=== PATIENT | male | born 1985 | race Caucasian/White ===

== ENCOUNTER 2017-07-28 11:03 | Emergency (ER) | payer SELFPAY ==
[2017-07-28 11:04] VITALS: BMI 35.4
[2017-07-28 11:18] VITALS: RESP 18; O2SAT 100
--- NOTE | 2017-07-28 12:28 | C.PDOC ---
History Of Present Illness 31 yr old male presents to the ER with complaints of persistent left ear hearing loss for the past 1 month. Patient reports of bronchiolitis and sinus congestion symptoms, states he hears crackling sounds in the left ear with change in position. Patient denies fever, ear discharge, FB in ear, neck pain or headache. Time Seen by Provider: 07/28/17 11:42 Chief Complaint (Nursing): ENT Problem History Per: Patient History/Exam Limitations: None Onset/Duration Of Symptoms: Days (1 month) Past Medical History Reviewed: Historical Data, Nursing Documentation, Vital Signs Vital Signs: Last Vital Signs Temp 98 F 07/28/17 11:16 Pulse 71 07/28/17 11:16 Resp 18 07/28/17 11:16 BP 128/81 07/28/17 11:16 Pulse Ox 100 07/28/17 12:27 - Medical History PMH: Back Problems (slip disc (cervical-lumbar)), Bronchitis Family History: States: No Known Family Hx - Social History Hx Tobacco Use: Yes (smoke cessation counseling provided) Hx Alcohol Use: Yes Hx Substance Use: No - Immunization History Hx Tetanus Toxoid Vaccination: No Hx Influenza Vaccination: No Hx Pneumococcal Vaccination: No Review Of Systems Except As Marked, All Systems Reviewed And Found Negative. Constitutional: Negative for: Fever ENT: Positive for: Other ((+) Left ear hearing loss. Crackling sound in left ear. (-) FB in ear). Negative for: Ear Discharge Musculoskeletal: Negative for: Neck Pain Neurological: Negative for: Headache Physical Exam - Physical Exam Appears: Non-toxic, No Acute Distress Skin: Warm, Dry, No Rash Head: Atraumatic, Normacephalic Ear(s): Bilateral: Normal Nose: Normal Oral Mucosa: Moist Respiratory: Normal Breath Sounds, No Rales, No Rhonchi, No Stridor, No Wheezing Extremity: Normal ROM, No Swelling Neurological/Psych: Oriented x3, Normal Speech, Normal Motor ED Course And Treatment O2 Sat by Pulse Oximetry: 100 (RA) Pulse Ox Interpretation: Normal Disposition Counseled Patient/Family Regarding: Diagnosis, Need For Followup, Rx Given - Disposition Referrals: Presley Monreal MD [Staff Provider] - Disposition: HOME/ ROUTINE Disposition Time: 12:26 Condition: GOOD Additional Instructions: USE NASAL SPRAY X 1 MONTH COMPLETE ANTIBIOTICS PRESCRIBED. Prescriptions: Fluticasone Propionate [Flonase] 2 spr FREDY DAILY #1 bottle Pseudoephedrine HCl [Sudafed 24 Hour] 240 mg PO DAILY PRN #1 unit PRN Reason: Sinus Symptoms Sulfamethoxazole/Trimethoprim [Bactrim DS 800 mg-160 mg] 1 tab PO BID #28 tab Instructions: Sinusitis (ED) Forms: [email or web address] ([place]) - Clinical Impression Clinical Impression: Middle ear effusion, Sinusitis, Upper respiratory infection - Scribe Statement The provider has reviewed the documentation as recorded by the Manny Hackett Provider Attestation: All medical record entries made by the Kyawibmee were at my direction and personally dictated by me. I have reviewed the chart and agree that the record accurately reflects my personal performance of the history, physical exam, medical decision making, and the department course for this patient. I have also personally directed, reviewed, and agree with the discharge instructions and disposition.
[2017-07-28 12:41] VITALS: BP 136/68; PULSE 72; TEMP 98
== END 2017-07-28 12:41 | disposition home or self-care (01) ==
LOC: C.ER 11:03
DX: J06.9 Acute upper respiratory infection, unspecified (principal); J32.9 Chronic sinusitis, unspecified; H74.8X2 Other specified disorders of left middle ear and mastoid; Z87.891 Personal history of nicotine dependence

== ENCOUNTER 2018-04-15 09:27 | Emergency (ER) | payer SELFPAY ==
[2018-04-15 09:27] VITALS: BMI 35.4
--- NOTE | 2018-04-15 09:44 | C.PDOC ---
History Of Present Illness Patient reports right sided toothache since yesterday. Has not taken any pain relievers at home. Has not seen a dentist recently. Denies any other symptoms. Time Seen by Provider: 04/15/18 09:36 Chief Complaint (Nursing): Dental Pain History Per: Patient Onset/Duration Of Symptoms: Other (since yesterday) Past Medical History Reviewed: Historical Data, Nursing Documentation, Vital Signs Vital Signs: Last Vital Signs Temp 99 F 04/15/18 09:32 Pulse 81 04/15/18 09:32 Resp 16 04/15/18 09:32 BP 151/89 H 04/15/18 09:32 Pulse Ox 98 04/15/18 09:45 - Medical History PMH: Back Problems (slip disc (cervical-lumbar)), Bronchitis Family History: States: Unknown Family Hx - Social History Hx Tobacco Use: Yes (smoke cessation counseling provided) Hx Alcohol Use: Yes Hx Substance Use: No - Immunization History Hx Tetanus Toxoid Vaccination: No Hx Influenza Vaccination: No Hx Pneumococcal Vaccination: No Review Of Systems Except As Marked, All Systems Reviewed And Found Negative. Physical Exam - Physical Exam Appears: Well, Non-toxic Skin: Normal Color Teeth: No Loose, Other (R upper canine cracked with caries, minimally tender to percussion.) Gingiva: Normal Appearing, No Swelling, No Bleeding, No Abscess Neurological/Psych: Oriented x3 ED Course And Treatment O2 Sat by Pulse Oximetry: 98 Medical Decision Making Medical Decision Making: Patient seen and examined. Advised OTC pain medication at home. Gave 600mg motrin PO here in the ED. Will write Rx for abx. Advised patient to see dentist as soon as possible. Disposition - Disposition Disposition: HOME/ ROUTINE Disposition Time: 09:44 Condition: GOOD Additional Instructions: MAYDA MITTAL, thank you for letting us take care of you today. Your provider was Elsi Gann MD and you were treated for DENTAL PAIN. The emergency medical care you received today was directed at your acute symptoms. If you were prescribed any medication, please fill it and take as directed. It may take several days for your symptoms to resolve. Return to the Emergency Department if your symptoms worsen, do not improve, or if you have any other problems. Please contact your doctor or call one of the physicians/clinics you have been referred to that are listed on the Patient Visit Information form that is included in your discharge packet. Bring any paperwork you were given at discharge with you along with any medications you are taking to your follow up visit. Our treatment cannot replace ongoing medical care by a primary care provider outside of the emergency department. Thank you for allowing the [facility] team to be part of your care today. If you had an X-Ray or CT scan: A Radiologist will review the ED reading if any change in treatment is needed we will contact you. If you had a blood, urine, or wound culture: It will take several days for the results, if any change in treatment is needed we will contact you. If you had an STI test: It will take 48 hours for the results. Please call after 1 week if you have not heard back. Prescriptions: Penicillin VK [Penicillin VK Tab] 500 mg PO QID #28 tab Instructions: Dental Pain (DC) Forms: [employer] (Syrian), Work Excuse - Clinical Impression Clinical Impression: Toothache
[2018-04-15 09:48] VITALS: BP 151/89; PULSE 81; RESP 16; TEMP 99; O2SAT 98
== END 2018-04-15 10:03 | disposition home or self-care (01) ==
LOC: C.ER 09:27
DX: K08.89 Other specified disorders of teeth and supporting structures (principal); F17.210 Nicotine dependence, cigarettes, uncomplicated